=== PATIENT | male | born 1975 | race Caucasian/White ===

== ENCOUNTER → 2016-03-24 | Outpatient (CLI) | payer OTHER ==
--- NOTE | 2016-03-24 20:28 | HKNOTE ---
DATE OF SERVICE: 03/24/2016 MAIN COMPLAINT: Pain in the left hip. HISTORY OF MAIN COMPLAINT: The patient is a 40-year-old male who complains of pain in his left hip. He has had the pain now since 11/2015. The patient underwent surgery to his lumbar spine on 04/09/2015. This was done after seeing [facility] orthopedic surgeons since nobody could diagnose his problem. The patient had the classic symptoms of left-sided sciatica. The surgery turned out to have a good result, and he is pleased that he cheung d the operation. As noted above, he subsequently developed pain in his left groin. Before he had surgery on his lumb ar spine, he was given a lumbar epidural cortisone injection under anesthetic at the same time the l eft hip was injected. The patient had a foot drop after that which stayed for about 6 hours and "sc ared me to ." The foot drop has subsequently completely recovered. He continued to have pain in the left groin and went from one doctor to another, and nobody seemed t o be able to diagnose his problem. He recently saw ____, who ordered an MRI scan of his left hi p, advised the patient that he has a torn labrum. The patient on his own found a doctor in [place] (Dr. Robles Burger) who is a hip specialist. Dr. Burger recommended an arthroscopic operation on the hip for a torn labrum as well as to "shave the bone and do a microfracture." PRESENT COMPLAINTS: The patient's main pain is in the left groin with some radiation down the anter ior thigh to just above the knee. He gets pain in the groin with virtually every step that he takes . The pain occurs when his left hip is hyperextended with a fast gait. He also gets pain on doing a golf swing. The worst pain is when he sits cross-legged. Pain is aggravated by walking, weightbe aring and stair climbing. He does not get rest pain or night pain. Not taking any medications for the pain. The patient has a long history of problems with his lower back as noted above. He had rosario rgery on the lumbar spine 04/09/2015. On a level surface, he can walk about 2 or more miles without using a walking aid. Both hips click on occasion. He does not limp. The right leg seems to be lo nger than the left leg. The patient does not have a shoe lift. He can clip his toenails and tie hi s shoelaces. PAST ORTHOPEDIC HISTORY: Hemilaminectomy of the lumbar spine 04/09/[address] Sutherland in [facility]. PRIOR CORTISONE INTAKE: The patient has had 1 prior cortisone injection into his left hip and lower back. Note that he got foot drop after the injection which lasted for about 24 hours. ALCOHOL INTAKE: The patient has never been an alcoholic. He drinks 2 alcoholic beverages a week. OTHER JOINT PROBLEMS: None. BLOOD TESTS FOR ARTHRITIS: None. PRIOR INJURIES TO HIPS OR KNEES: None. WORK STATUS: The patient works on [employer] on the [employer]. PAST MEDICAL HISTORY: Entirely negative. PAST SURGICAL HISTORY: Laminectomy, Dr. Sky Sutherland, 04/09/2015. ALLERGIES: NONE. MEDICATIONS: None. PREVIOUS MAJOR INJURIES OR ACCIDENTS: None. FAMILY HISTORY: Father age 69, alive and well. Mother age 69, alive and well. SYSTEMS REVIEW: The patient has a history of having had blood in urine which is how resolved. Ting ling sensations in his left leg down to the foot since his back surgery. Otherwise negative. HABITS: The patient does not smoke. He drinks 2 alcoholic beverages a week. PHYSICAL EXAMINATION: GENERAL: Extremely fit and youthful 40-year-old male. VITAL SIGNS: Height 5 feet 6 inches. Weight 160 pounds. Blood pressure 115/80, temperature 98.3. GAIT: Normal. He walks without a walking aid. BACK: Dynamic pain assessment reveals a pain free range of motion in flexion, extension, lateral be nding and rotation. Inspection of the spine reveals no list. There is no lumbar paraspinal muscle sp asm. The pelvis is level. Facet stress test is negative bilaterally. Palpation of the spine demonstr ates no tenderness of the spinous processes, facet joints, sacroiliac joint, sciatic notch, or poste rior thigh. NEUROLOGIC: Motor examination reveals no muscle deficit in the lower extremities. Deep tendon refle xes in the lower extremities: Right knee jerk negative, left knee jerk negative, right ankle jerk n egative, left ankle jerk negative. Straight leg raising is negative bilaterally at 80 degrees. Laseg ue and WILLIE tests are negative. LEFT HIP: A full range of motion with pain in the groin on forced external rotation, forced interna l rotation and forced flexion. LEFT KNEE: The left knee shows normal alignment. Active and passive extension is 0 degrees. Active and passive flexion is 135 degrees. The medial and lateral collateral ligaments and cruciate ligamen ts are intact. Dariel test is negative. There is no effusion, tenderness, scarring, crepitus, or cy sts. The patella tracks normally. There is no tenderness on the articular surface of the patella or in the patellar groove. The Q angle is normal. RIGHT KNEE: The right knee shows normal alignment. Active and passive extension is 0 degrees. Activ e and passive flexion is 135 degrees. The medial and lateral collateral ligaments and cruciate ligam ents are intact. Dariel test is negative. There is no effusion, tenderness, scarring, crepitus, or cysts. The patella tracks normally. There is no tenderness on the articular surface of the patella o r in the patellar groove. The Q angle is normal. IMAGING: Plain x-rays of his pelvis and hips obtained today were reviewed. These show shallow sock ets with congenital dysplasia. Hip joint spaces are well maintained. No osteophyte formation. No subchondral sclerosis. An MRI scan of the left hip obtained on 12/19/2015 is reported by ____ as showing "Longitudinal tear of the superior left acetabular labrum with adjacent loss of cartilage in the superior acetabul um and subchondral marrow changes. No significant joint effusion. No evidence of fracture or dislo cation of the hip. No avascular necrosis. Multilocular cyst adjacent to the anterior inferior right acetabulum measuring 2.9 cm which may repr esent a paralabral cyst or other ____." DISCUSSION: The patient is a 40-year-old male who has pain in the left groin. He occasionally gets clicking both hips. The clicking is not associated with pain. He has been advised to have an arth roscopic operation on the hip to "repair the labrum." The patient indicates that when he takes Motr in, he has no pain in the left hip. Prior cortisone injections into the left hip did not give him any relief, but clearly from the histo ry, the injection was in the wrong place since he developed a foot drop after he had the injection. The patient is scheduled to have an arthroscopic operation on the left hip a week from now, and he c omes in for another opinion. In my opinion, repairing the labrum is not all that successful in overcoming hip pain with other yvonne gnoses such as arthritis. The patient himself notes that anti-inflammatory medications take all his pain away, suggesting that his problem in the hip is not mechanical but inflammatory. MANAGEMENT: The patient is advised that he should hold off on having an arthroscopic operation on h is hip. He indicates that he himself, in any case, did not want to have the surgery, and his father -in-law who is a surgeon has also recommended that he not have the arthroscopic surgery. The patient is advised that he most certainly could have an arthroscopic surgery at any time that he wants to. There is certainly no urgency about it at this time. By way of diagnostic test, the patient was given an injection of 4 mL of lidocaine into the left hip . Thereafter, he had actually no pain in his groin, he had a full range of motion without pain, he could squat, and he could sit cross-legged on the floor without pain. This injection was therefore followed up with 2 mL of Kenalog and another 4 mL of 2% lidocaine. As noted above, patient had immediate and complete relief of his pain. FINAL DIAGNOSES: 1. Torn labrum, left hip joint. 2. 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 3. Mild congenital dysplasia of the right hip. 4. Torn labrum of the left hip. The patient will call with a report in 3 weeks' time concerning his response to the cortisone inject ion. He was advised that he could have these injections every 3 months if needed. Certainly, if he gets no improvement from the cortisone, then his only alternative would be to have an arthroscopic operation of the hip and hope that repairing the labrum gives him the relief he is looking for. Dictated By: ROSHAN YOST/[place] Conf#: [id number] DID#: [id number]
== END | disposition home or self-care (01) ==
LOC: HKI 14:38
DX: S73.102A Unspecified sprain of left hip, initial encounter (principal); X58.XXXA Exposure to other specified factors, initial encounter; M16.12 Unilateral primary osteoarthritis, left hip; Q65.89 Other specified congenital deformities of hip
CPT/HCPCS: 20610; G0463; J3301